=== PATIENT | male | born 1935 | race Caucasian/White ===

== ENCOUNTER → 2018-07-02 | Outpatient (CLI) | payer OTHER | END | disposition home or self-care (01) | LOC: SHCH 07:51 | PROVIDERS: ATTEND Internal Medicine Cardiovascular Disease | DX: I71.4 Abdominal aortic aneurysm, without rupture (principal) | CPT/HCPCS: 93978 ==

== ENCOUNTER 2018-08-20 07:18 | Day surgery (SDC) | payer OTHER ==
[2018-08-20 07:42] VITALS: BP 156/71
[2018-08-20 08:04] LABS: CREATININE 1.8 mg/dL (0.5-1.5)
--- NOTE | 2018-08-20 08:30 | NUR ---
ILEOSTOMY RIGHT ABDOMEN DRAINING YELLOWISH, [id number] STOOLS. Addendum: 08/20/18 at 1448 by EVGENY DIAZ RN RN Amended: Links added.
[2018-08-20] MEDS ORDERED: SODIUM CHLORIDE 0.9% 1000ML 1,000 ML IV ONE (08:56)
[2018-08-20 10:14] VITALS: BP 149/66
[2018-08-20] MEDS ORDERED: IOHEXOL 350 MG/ML 100ML INFUS..BTL IV ONE (13:31)
[2018-08-20 14:20] VITALS: BP 152/80
--- NOTE | 2018-08-20 14:30 | NUR ---
NOTE PT CAME BACK FROM RADIOLOGY DEPARTMENT AWAKE, ALERT ORIENTED. STABLE. NO COMPLAINTS MADE. NOT IN ANY APPARENT DISTRESS. DISCHARGE INSTRUCTIONS GIVEN BY MIMI AT THE RADIOLOGY DEPARTMENT TO , ASKED IF THERE ARE ANY FURTHER QUESTIONS, VERBALIZED UNDERSTANDING TO ALL INSTRUCTIONS. PT DISCHARGED IN STABLE CONDITION VIA WHEELCHAIR WITH .
== END 2018-08-20 14:30 | disposition home or self-care (01) ==
LOC: DAH 07:18 → EDSTATUS 08:00 → DAH 14:30
PROVIDERS: ATTEND Internal Medicine Cardiovascular Disease
DX: I71.4 Abdominal aortic aneurysm, without rupture (principal); K80.20 Calculus of gallbladder without cholecystitis without obstruction; M47.895 Other spondylosis, thoracolumbar region; K82.8 Other specified diseases of gallbladder; K40.20 Bilateral inguinal hernia, without obstruction or gangrene, not specified as recurrent; N32.89 Other specified disorders of bladder; I25.10 Atherosclerotic heart disease of native coronary artery without angina pectoris; Z93.3 Colostomy status; Z95.820 Peripheral vascular angioplasty status with implants and grafts
CPT/HCPCS: 36415; 74174; 82565; 82948 ×2; 84520; A4606; J7030; Q9967; 96360; 96361